=== PATIENT | female | born 1985 | race American Indian/Alaskan Native ===

== ENCOUNTER 2016-05-06 06:33 | Inpatient (IN) | payer OTHER ==
[~2016-05-06 06:33] MED LIST: XYLOCAINE 2% INFILTRATI ONE
[2016-05-06] MEDS ORDERED: XYLOCAINE 2% INFILTRATI ONE (06:34)
--- NOTE | 2016-05-06 06:50 | History and Physical Report ---
History of Present Illness Date of examination: 05/06/16 (home delivery - male ) Date of admission: 05/06/16 06:33 Chief complaint: del male infant at home, arrived via EMS. History of present illness: patient is unassigned to provider at [facility], care at [facility], [facility] 05/14/16. She denies any complications with , or her other 3 previous vaginal deliveries. Pt denies any medical issues or surgeries. NKDA. Past History Past Medical History: no pertinent history Past Surgical History: no surgical history Social history: no significant social history - Obstetrical History Expected Date of Delivery: 05/14/16 Actual Gestation: 38 Week(s) 6 Day(s) : 4 Para: 4 Hx # Term Pregnancies: 4 Number of Pregnancies: 0 Spontaneous Abortions: 0 Induced : 0 Number of Living Children: 4 Review of Systems All systems: negative - Physical Exam Breasts: Positive: normal Cardiovascular: Regular rate Lungs: Positive: Clear to auscultation, Normal air movement Abdomen: Positive: normal appearance, soft Genitourinary (Female): Positive: normal external genitalia Vulva: both: laceration/episiotomy Uterus: Positive: normal size, normal contour Anus/Rectum: Positive: normal perianal skin Extremities: Positive: normal Results All other labs normal. Assessment and Plan patient arrived to hospital via EMS, delivered in ambulance, placenta del by Dr. Johnson and 2nd degree julissa lac repaired. Will contact provider for records. plan for routine course. - Patient Problems (1) 38 weeks gestation of Current Visit: Yes Status: Acute (2) Single live Diagnosis Date: 05/06/16 Current Visit: Yes Status: Acute Plan to address problem: Del [id number]
--- NOTE | 2016-05-06 07:02 | Procedure Note ---
OB Delivery Note - Delivery Date of Delivery: 05/06/16 (Male , outside of hospital) Surgeon: MISAEL WHITE Estimated blood loss: 200cc - Vaginal Delivery presentation: vertex Intrapartum events: other(please specify) (del in ambulace) Delivery induction: none Delivery monitor: none Delivery placenta: expressed (del 20 minutes after , intact) Delivery cord: 3 umbilical vessels Episiotomy: none Delivery laceration: 2nd degree Delivery repair: vicryl Anesthesia: local - Infant A Infant Gender: Male (6#1, no apgars assigned by EMS)
[2016-05-06] MEDS ORDERED: PHENERGAN PO PRN (07:05)
[2016-05-06] MEDS ORDERED: DERMOPLAST TP PRN (07:05)
[2016-05-06] MEDS ORDERED: BENADRYL PO PRN (07:05)
[2016-05-06] MEDS ORDERED: DULCOLAX PR PRN (07:05)
[2016-05-06] MEDS ORDERED: LANSINOH TP PRN (07:05)
[2016-05-06] MEDS ORDERED: TYLENOL PO PRN (07:05)
[2016-05-06] MEDS ORDERED: MILK OF MAGNESIA PO PRN (07:05)
[2016-05-06] MEDS ORDERED: ZOFRAN IV PRN (07:05)
[2016-05-06] MEDS ORDERED: TUCKS PAD TP PRN (07:05)
[2016-05-06] MEDS ORDERED: SODIUM CHLORIDE FLUSH SYRINGE 10 ML IV NR (08:00)
[2016-05-06] MEDS ORDERED: PITOCin/NS 20 UNIT/1000ML DRIP 1,000 ML IV SCH (08:00)
[2016-05-06 08:20] LABS: Hematocrit 26.5 % (30.3-42.9); Hemoglobin 8.2 gm/dl (10.1-14.3); Mean Corpuscular HGB Conc 31 % (30-34); Platelet Count 337 K/mm3 (140-440); Red Cell Distribution Width 18.5 % (13.2-15.2); White Blood Count 17.7 K/mm3 (4.5-11.0)
[2016-05-06 08:40] LABS: Mean Corpuscular Hemoglobin 21 pg (28-32); Mean Corpuscular Volume 68 fl (79-97)
[2016-05-06] MEDS: MOTRIN PO SCH ×3 (10:00→23:43)
[2016-05-06] MEDS: PRENATAL VITAMIN PO SCH (10:00)
[2016-05-06 21:16] LABS: Hematocrit 22.9 % (30.3-42.9); Hemoglobin 7.2 gm/dl (10.1-14.3)
[2016-05-07] MEDS: MOTRIN PO SCH ×4 (05:37→23:23)
--- NOTE | 2016-05-07 06:09 | Discharge Summary ---
Providers - Providers Date of Admission: 05/06/16 06:33 Date of discharge: 05/07/16 (pt agrees with d/c) Attending physician: MISAEL WHITE Primary care physician: MISAEL WHITE Hospitalization Reason for admission: other (pt delivered in ambulance arrived via EMS) Delivery: Episiotomy: none Laceration: none Other procedures: none complications: none Discharge diagnosis: IUP at term delivered baby: male Hospital course: pt states delivery was not "hard" Arrived via EMS with in arms Placenta delivered after arrival to L&D by CNM Pt w/o complaint desires d/c today FF below umb Lochia small perineum intact H &H 7.2/.9, pt has chronic anemia, today she has no s/sx of anemia. Doing well s/p vag del P: d/c today with instructions to f/u in 4-6 weeks, RX po iron provided, pt is interested in DEPO for BC HO given. Pt states she is GBS negative. Condition at discharge: Good Disposition: DISCHARGED TO HOME OR SELFCARE - Discharge Diagnoses (1) Single live Status: Acute Comment: pt will call and make appt with [place] for PPV in 4-6 weeks Plan - Provider Discharge Summary Activity: routine, no sex for 6 weeks, no heavy lifting 4 weeks, no strenuous exercise Diet: routine Instructions: routine Additional instructions: [] Smoking cessation referral if applicable(refer to patient education folder for contact #) [] Refer to [facility]'s [facility] Booklet Call your doctor immediately for: * Fever > 100.5 * Heavy vaginal bleeding ( >1 pad per hour) * Severe persistent headache * Shortness of breath * Reddened, hot, painful area to leg or breast * Drainage or odor from incision. * Keep incision clean and dry at all times and follow doctor's instructions regarding bathing/showering - Follow up plan Follow up: MISAEL WHITE MD [Primary Care Provider] - 6 Weeks (Please call your provider to make appointment for visit in 4-6 weeks and your son's circumcision in 1 week, Please take iron as prescribed.)
[2016-05-07] MEDS ORDERED: DEPO-PROVERA (CONTRACEPTION) IM ONE (06:31)
[2016-05-07] MEDS ORDERED: BOOSTRIX IM ONE (07:05)
[2016-05-07] MEDS: PRENATAL VITAMIN PO SCH (12:35)
[2016-05-08] MEDS: MOTRIN PO SCH ×2 (05:42→12:05)
--- NOTE | 2016-05-08 09:15 | Event Note ---
Date: 05/08/16 Pt was discharged yesterday but we are still trying to get records from [place]. Apparently normal care per her. Will try to locate her card.
[2016-05-08] MEDS: PRENATAL VITAMIN PO SCH (10:16)
[2016-05-08] MEDS ORDERED: DEPO-PROVERA (CONTRACEPTION) IM ONE (15:30)
[2016-05-08 17:06] VITALS: BP 106/58
== END 2016-05-08 16:35 | disposition home or self-care (01) | DRG 776 ==
LOC: LD 06:33 → OB 09:33
PROVIDERS: ADMIT Obstetrics & Gynecology; ATTEND Obstetrics & Gynecology
DX: Z39.0 Encounter for care and examination of mother immediately after delivery (principal); O99.03 Anemia complicating the puerperium; D64.9 Anemia, unspecified
CPT/HCPCS: 36415; 85014; 85018; 85027; 86850; 86900; 86901; 99211; A6250; G0463; J1050